=== PATIENT | female | born 1995 | race Caucasian/White ===

== ENCOUNTER → 2019-04-09 | Emergency (ER) | payer BC, OTHER ==
[~2019-04-09] VITALS: Ht 160 cm; Wt 63.5 kg
[~2019-04-09] MED LIST: ESCI10TA PO
--- OUTSIDE RECORDS SUMMARY | 2019-04-09 19:41 | XMS REPORT | Referral Summary ---
Author Author Via IRWIN Nava, [facility] Organization Via ZoeyIRWIN Flowers, [facility] Address Unknown Phone Unavailable Care Team Providers Care Director Script Name Role Phone Elio Perez PCP Encounter [facility] Date(s): 11/18/15 - 11/18/15 [facility] IRWIN Nava, [facility] [address], [place] [address]- Discharge Diagnosis: Left acute serous otitis media Discharge Diagnosis: Acute maxillary sinusitis Discharge Disposition: 01-Home or Self Care Attending Physician: Marcello Breaux MD Admitting Physician: Marcello Breaux MD Vital Signs Most recent to 1 oldest [Reference Range]: Temperature Tympanic 36.4 degC [36.6-38.1 degC] *LOW* (11/18/15 1:43 PM) Peripheral Pulse 82 bpm Rate [60-100 bpm] (11/18/15 1:43 PM) Blood Pressure 110/80 mmHg [90-140/60-90 mmHg] (11/18/15 1:43 PM) Problem List No Known Problems Allergies, Adverse Reactions, Alerts No Known Allergies Medications Bactrim DS 800 mg-160 mg oral tablet 1 tabs, Oral, BID, X 10 days, # 20 tabs, 0 Refill(s), [facility] [id number] Start Date: 11/18/15 Stop Date: 11/28/15 Status: Ordered Results No data available for this section Immunizations Vaccine Date Refusal Reason tetanus/diphth/pertuss (Tdap) adult/adol 06/18/09 diphtheria/pertussis, acel/tetanus ped 04/24/02 diphtheria/pertussis, acel/tetanus ped 05/07/98 diphtheria/pertussis, whole cell/tetanus 97 diphtheria/pertussis, whole cell/tetanus 97 diphtheria/pertussis, whole cell/tetanus 97 haemophilus b conjugate (HbOC) vaccine 05/07/98 haemophilus b conjugate (HbOC) vaccine 97 haemophilus b conjugate (HbOC) vaccine 97 haemophilus b conjugate (HbOC) vaccine 97 hepatitis A pediatric vaccine 06/19/10 hepatitis A pediatric vaccine 03/08/06 hepatitis B pediatric vaccine 97 hepatitis B pediatric vaccine 97 measles/mumps/rubella virus vaccine 04/24/02 measles/mumps/rubella virus vaccine 05/07/98 meningococcal conjugate vaccine 01/08/15 meningococcal conjugate vaccine 06/18/09 pneumococcal 23-polyvalent vaccine 02/23/99 poliovirus vaccine, inactivated 04/24/02 poliovirus vaccine, inactivated 97 poliovirus vaccine, inactivated 97 poliovirus vaccine, inactivated 97 varicella virus vaccine 06/19/10 varicella virus vaccine 07/24/98 Procedures No data available for this section Social History Social History Type Response Smoking Status Never smoker Assessment and Plan Extracted from: Title: Office Visit Note Author: Marcello Breaux MD Date: 11/18/15 Assessment/Plan 1.Acute maxillary sinusitis Bactrim DS twice daily for 10 days. May use [id number] decongestantsof choice. Call for worsening or failure to improve. Ordered: Office Visit Level 3 Est 24833 Return to Clinic 2.Left acute serous otitis media Bactrim DS twice daily for 10 days. Call for worsening or failure to improve. Orders: sulfamethoxazole-trimethoprim, 1 tabs, Oral, BID, X 10 days, # 20 tabs, 0 Refill(s), Pharmacy: [facility] [id number] Referrals to Other Providers Referred by: Marcello Breaux MD
--- OUTSIDE RECORDS SUMMARY | 2019-04-09 19:41 | XMS REPORT | Referral Summary ---
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 [address], [place] [address] Discharge Diagnosis: ADHD (attention deficit hyperactivity disorder) Discharge Disposition: 01-Home or Self Care Attending Physician: Elio Perez MD Admitting Physician: Elio Perez MD Vital Signs Most recent to 1 oldest [Reference Range]: Peripheral Pulse 70 bpm Rate [60-100 bpm] (12/03/16 1:40 PM) Blood Pressure 140/100 mmHg [90-140/60-90 mmHg] (12/03/16 1:40 PM) SpO2 98 % (12/03/16 1:40 PM) Problem List No Known Problems Allergies, Adverse Reactions, Alerts No Known Allergies Medications Vyvanse 20 mg oral capsule 20 mg 1 caps, Oral, qAM, # 30 caps, 0 Refill(s) Start Date: 12/03/16 Status: Ordered Results No data available for this section Immunizations Given and Recorded Vaccine Date Status Refusal Reason tetanus/diphth/pertuss (Tdap) adult/adol 06/18/09 Recorded diphtheria/pertussis, acel/tetanus ped 04/24/02 Given diphtheria/pertussis, acel/tetanus ped 05/07/98 Given diphtheria/pertussis, whole cell/tetanus 97 Recorded diphtheria/pertussis, whole cell/tetanus 97 Recorded diphtheria/pertussis, whole cell/tetanus 97 Recorded haemophilus b conjugate (HbOC) vaccine 05/07/98 Given haemophilus b conjugate (HbOC) vaccine 97 Given haemophilus b conjugate (HbOC) vaccine 97 Given haemophilus b conjugate (HbOC) vaccine 97 Given hepatitis A pediatric vaccine 06/19/10 Given hepatitis A pediatric vaccine 03/08/06 Given hepatitis B pediatric vaccine 97 Given hepatitis B pediatric vaccine 97 Given measles/mumps/rubella virus vaccine 04/24/02 Given measles/mumps/rubella virus vaccine 05/07/98 Given meningococcal conjugate vaccine 01/08/15 Given meningococcal conjugate vaccine 06/18/09 Given pneumococcal 23-polyvalent vaccine 02/23/99 Recorded poliovirus vaccine, inactivated 04/24/02 Given poliovirus vaccine, inactivated 97 Given poliovirus vaccine, inactivated 97 Given poliovirus vaccine, inactivated 97 Given varicella virus vaccine 06/19/10 Given varicella virus vaccine 07/24/98 Given Procedures No data available for this section Social History Social History Type Response Smoking Status Never smoker Assessment and Plan Extracted from: Title: ADHD concerns Author: Elio Perez MD Date: 12/03/16 Assessment/Plan 1.ADHD (attention deficit hyperactivity disorder) Signs and symptoms of ADHD as well as potential treatment options. Wrists and benefits of treatment reviewed. Stimulant versus non-stimulant medications discussed. Slightly concerned his blood pressure is borderlineand she is mildly tachycardic. Does admit to being a little bit anxious and worried today and suspect that this is the issue. Mother has a blood pressure cuff at home and I would like her to check her blood pressurecouple times a week at rest. 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 Also point side to try Vyvanse 20 mg 1 each morning. After 5 days can increase to 40 mg of tolerating well without adequate effect. She will call before prescription runs out so that we can provide a refill. I want to see her back when she has bone on terminal dose for at least a month for recheck on blood pressure, pulse, weight. Follow up sooner as needed Referrals to Other Providers Referred by: Elio Perez MD
--- OUTSIDE RECORDS SUMMARY | 2019-04-09 19:42 | XMS REPORT | Referral Summary ---
Author Organization Unknown Address Unknown Phone Unavailable Care Team Providers Care Sample Stitcher Name Role Phone Elio Perez PCP Encounter [facility] [id number] Date(s): 01/08/15 - 01/08/15 [facility] [address], [place] [address] Discharge Diagnosis: Encounter for immunization Discharge Disposition: Home or Self Care Attending Physician: Colten Greene Admitting Physician: Colten Greene Vital Signs No data available for this section Problem List No data available for this section Allergies, Adverse Reactions, Alerts No data available for this section Medications No data available for this section Results No data available for this section Immunizations Vaccine Date Refusal Reason diphtheria/pertussis, acel/tetanus ped 04/24/02 diphtheria/pertussis, acel/tetanus ped 05/07/98 haemophilus b conjugate (HbOC) vaccine 05/07/98 haemophilus b conjugate (HbOC) vaccine 97 haemophilus b conjugate (HbOC) vaccine 97 haemophilus b conjugate (HbOC) vaccine 97 hepatitis A pediatric vaccine 06/19/10 hepatitis A pediatric vaccine 03/08/06 hepatitis B pediatric vaccine 97 hepatitis B pediatric vaccine 97 measles/mumps/rubella virus vaccine 04/24/02 measles/mumps/rubella virus vaccine 05/07/98 meningococcal conjugate vaccine 01/08/15 meningococcal conjugate vaccine 06/18/09 poliovirus vaccine, inactivated 04/24/02 poliovirus vaccine, inactivated 97 poliovirus vaccine, inactivated 97 poliovirus vaccine, inactivated 97 varicella virus vaccine 06/19/10 varicella virus vaccine 07/24/98 Procedures No data available for this section Social History No data available for this section Assessment and Plan No data available for this section
--- OUTSIDE RECORDS SUMMARY | 2019-04-09 19:42 | XMS REPORT | Referral Summary ---
Author Author [facility] Organization Via ZoeyIRWIN Flowers, [facility] Address Unknown Phone Unavailable Care Team Providers Care Assembly Mechanic Name Role Phone Elio Perez PCP Encounter [facility] [id number] Date(s): 05/06/15 - 05/06/15 [facility] [address], [place] [address] Discharge Diagnosis: Infected insect bite Discharge Disposition: -Home or Self Care Attending Physician: Alix Gallegos Admitting Physician: Alix Gallegos Vital Signs Most recent to 1 oldest [Reference Range]: Temperature Oral 36.9 degC [35.8-37.3 degC] (05/06/15 3:03 PM) Peripheral Pulse 73 bpm Rate [60-100 bpm] (05/06/15 3:03 PM) Blood Pressure 108/62 mmHg [90-140/60-90 mmHg] (05/06/15 3:03 PM) Problem List No data available for this section Allergies, Adverse Reactions, Alerts No Known Allergies Medications triamcinolone 0.5% topical cream 1 kai, Topical, TID, # 15 g, 0 Refill(s), Pharmacy: [facility] Start Date: 05/06/15 Status: Ordered Results No data available for [...] available for this section Assessment and Plan Extracted from: Title: Office Visit Note Author: Alix Gallegos Date: 05/06/15 Assessment/Plan 1.Infected insect bite cefadroxil 500 bid #14 triamcinolone cr 0.5% tid prn claritin am and benadryl hs prn RTC if no better Ordered: Office Visit Level 3 Est 77382 Orders: cefadroxil, 500 mg 1 caps, Oral, BID, X 7 days, # 14 caps, 0 Refill(s), Pharmacy: [facility], 1 caps Oral BID,x7 days triamcinolone topical, 1 kai, Topical, TID, # 15 g, 0 Refill(s), Pharmacy: [facility]
--- OUTSIDE RECORDS SUMMARY | 2019-04-09 19:42 | XMS REPORT | Referral Summary ---
Author Author [facility] IRWIN Nava, [facility] Organization Via ZoeyIRWIN Flowers, [facility] Address Unknown Phone Unavailable Care Team Providers Care Cinema Operator Name Role Phone Elio Perez PCP Encounter [facility] Date(s): 08/16/17 - 08/16/17 Via IRWIN Nava, [facility] [address], [place] [address] Discharge Diagnosis: Atopic eczema Discharge Disposition: 01-Home or Self Care Attending Physician: Elio Perez MD Admitting Physician: Elio Perez MD Vital Signs Most recent to 1 oldest [Reference Range]: Peripheral Pulse 70 bpm Rate [60-100 bpm] (08/16/17 8:02 AM) Blood Pressure 122/80 mmHg [90-140/60-90 mmHg] (08/16/17 8:02 AM) SpO2 98 % (08/16/17 8:02 AM) Problem List No Known Problems Allergies, Adverse Reactions, Alerts No Known Allergies Medications Eucrisa 2% topical ointment 1 kai, Topical, BID, apply to dry skin bid prn. wash hands thoroughly after appl ication, # 60 g, 0 Refill(s), samples given to patient (Rx) Start Date: 08/16/17 Status: Ordered Results No data available for this section Immunizations Given and Recorded Vaccine Date Status Refusal Reason meningococcal conjugate vaccine 01/08/15 Given meningococcal conjugate vaccine 06/18/09 Given hepatitis A pediatric vaccine 06/19/10 Given hepatitis A pediatric vaccine 03/08/06 Given varicella virus vaccine 06/19/10 Given varicella virus vaccine 07/24/98 Given tetanus/diphth/pertuss (Tdap) adult/adol 06/18/09 Recorded diphtheria/pertussis, acel/tetanus ped 04/24/02 Given diphtheria/pertussis, acel/tetanus ped 05/07/98 Given measles/mumps/rubella virus vaccine 04/24/02 Given measles/mumps/rubella virus vaccine 05/07/98 Given poliovirus vaccine, inactivated 04/24/02 Given poliovirus vaccine, inactivated 97 Given poliovirus vaccine, inactivated 97 Given poliovirus vaccine, inactivated 97 Given pneumococcal 23-polyvalent vaccine 02/23/99 Recorded haemophilus b conjugate (HbOC) vaccine 05/07/98 Given haemophilus b conjugate (HbOC) vaccine 97 Given haemophilus b conjugate (HbOC) vaccine 97 Given haemophilus b conjugate (HbOC) vaccine 97 Given hepatitis B pediatric vaccine 97 Given hepatitis B pediatric vaccine 97 Given diphtheria/pertussis, whole cell/tetanus 97 Recorded diphtheria/pertussis, whole cell/tetanus 97 Recorded diphtheria/pertussis, whole cell/tetanus 97 Recorded Procedures No data available for this section Social History Social History Type Response Smoking Status Never smoker entered on: 11/18/15 Assessment and Plan Extracted from: Title: eczema Author: Elio Perez MD Date: 08/16/17 Impression and Plan Diagnosis Atopic eczema ([id number] L20.9, Discharge, Medical). Plan: Consistent with atopic dermatitis. Given facial involvement, recommend Eucrissa ointment, apply twice daily. Samples provided and if these are beneficial she will will call for prescription. Discontinue current facial wash as it is probably contributing. Eczema instructions reviewed at length. She will call if issues are not improving. Orders Orders (Selected) Outpatient Orders Ordered Office Visit Level 3 Est 34348: Return to Clinic: Prescriptions Prescribed Eucrisa 2% topical ointment: 1 kia, Topical, BID, apply to dry skin bid prn. wash hands thoroughly after application, 60 g, 0 Refill(s). Referrals to Other Providers Referred by: Elio Perez MD
--- NOTE | 2019-04-09 20:07 | ED General ---
General Stated Complaint: TROUBLE BREATHING Source of Information: Patient Exam Limitations: No Limitations History of Present Illness Date Seen by Provider: April 09, 2019 Time Seen by Provider: 20:04 Initial Comments To ER with reports of difficulty breathing. This particular episode began last night around 11 PM. She states that she is unable to go to sleep because she feels like she might stop breathing. Occasionally she feels lightheaded. She does feel anxious most of the time. Until about a year ago she didn't have much trouble with anxiety that it's becoming a more common problem for her with these episodes of shortness of breath starting about 2-3 months ago. She states this was initially began after a night of drinking and she just attributed it to a hangover. She denies cough fevers or chills. Timing/Duration: Getting Worse, Intermittent Severity: Moderate Associated Systoms: Other (dyspnea) Allergies and Home Medications Allergies Coded Allergies: No Known Drug Allergies (Unverified , 04/09/19) Patient Home Medication List Home Medication List Reviewed: Yes Review of Systems Review of Systems Constitutional: see HPI, other (anxious) EENTM: see HPI Respiratory: see HPI, short of breath Genitourinary: no symptoms reported Musculoskeletal: no symptoms reported Skin: no symptoms reported Psychiatric/Neurological: See HPI, Anxiety Hematologic/Lymphatic: No Symptoms Reported Past [id number] Hx Patient Social History Recent Foreign Travel: No Contact w/Someone Who Travel: No Physical Exam Vital Signs Capillary Refill : Height, Weight, BMI Height: '" Weight: lbs. oz. kg; BMI Method: General Appearance: No Apparent Distress, WD/WN, Anxious Eyes: Bilateral Eye Normal Inspection, Bilateral Eye PERRL, Bilateral Eye EOMI HEENT: PERRL/EOMI, TMs Normal, Normal ENT Inspection, Pharynx Normal Neck: Full Range of Motion, Normal Inspection Respiratory: Lungs Clear, Normal Breath Sounds, No Accessory Muscle Use, No Respiratory Distress Cardiovascular: Regular Rate, Rhythm, Normal Peripheral Pulses Gastrointestinal: Normal Bowel Sounds, Non Tender, Soft Extremity: Normal Capillary Refill, Normal Inspection Neurologic/Psychiatric: Alert, Oriented x3 Skin: Normal Color, Warm/Dry Progress/Results/Core Measures Suspected Sepsis SIRS Temperature: Pulse: Respiratory Rate: Laboratory Tests 04/09/19 20:05: White Blood Count 7.1 Blood Pressure / Mean: Laboratory Tests 04/09/19 20:05: Creatinine 0.82, Platelet Count 276, Total Bilirubin 1.1H Results/Orders Lab Results Laboratory Tests Test 04/09/19 20:05 04/09/19 20:21 Range/Units White Blood Count 7.1 4.3-11.0 10^3/uL Red Blood Count 5.37 4.35-5.85 10^6/uL Hemoglobin 16.5 H 11.5-16.0 G/DL Hematocrit 47 35-52 % Mean Corpuscular Volume 87 80-99 FL Mean Corpuscular Hemoglobin 31 25-34 PG Mean Corpuscular Hemoglobin Concent 36 32-36 G/DL Red Cell Distribution Width 12.8 10.0-14.5 % Platelet Count 276 130-400 10^3/uL Mean Platelet Volume 9.9 7.4-10.4 FL Neutrophils (%) (Auto) 73 42-75 % Lymphocytes (%) (Auto) 19 12-44 % Monocytes (%) (Auto) 8 0-12 % Eosinophils (%) (Auto) 0 0-10 % Basophils (%) (Auto) 0 0-10 % Neutrophils # (Auto) 5.1 1.8-7.8 X 10^3 Lymphocytes # (Auto) 1.3 1.0-4.0 X 10^3 Monocytes # (Auto) 0.6 0.0-1.0 X 10^3 Eosinophils # (Auto) 0.0 0.0-0.3 10^3/uL Basophils # (Auto) 0.0 0.0-0.1 10^3/uL D-Dimer < 0.27 0.00-0.49 UG/ML Sodium Level 141 135-145 MMOL/L Potassium Level 3.7 3.6-5.0 MMOL/L Chloride Level 102 98-107 MMOL/L Carbon Dioxide Level 25 21-32 MMOL/L Anion Gap 14 5-14 MMOL/L Blood Urea Nitrogen 11 7-18 MG/DL Creatinine 0.82 0.60-1.30 MG/DL Estimat Glomerular Filtration Rate > 60 BUN/Creatinine Ratio 13 Glucose Level 97 70-105 MG/DL Calcium Level 10.8 H 8.5-10.1 MG/DL Corrected Calcium 8.5-10.1 MG/DL Total Bilirubin 1.1 H 0.1-1.0 MG/DL Aspartate Amino Transf (AST/SGOT) 26 5-34 U/L Alanine Aminotransferase (ALT/SGPT) 16 0-55 U/L Alkaline Phosphatase 79 40-136 U/L Total Protein 7.7 6.4-8.2 GM/DL Albumin 5.0 H 3.2-4.5 GM/DL Thyroid Stimulating Hormone (TSH) 0.85 0.35-4.94 UIU/ML Serum Test, Qualitative NEGATIVE NEGATIVE Urine Color YELLOW Urine Clarity CLEAR Urine pH 6 5-9 Urine Specific [place] 1.025 H 1.016-1.022 Urine Protein 2+ H NEGATIVE Urine Glucose (UA) NEGATIVE NEGATIVE Urine Ketones 3+ H NEGATIVE Urine Nitrite NEGATIVE NEGATIVE Urine Bilirubin NEGATIVE NEGATIVE Urine Urobilinogen NORMAL NORMAL MG/DL Urine Leukocyte Esterase 1+ H NEGATIVE Urine RBC (Auto) NEGATIVE NEGATIVE Urine RBC NONE /HPF Urine WBC NONE /HPF Urine Squamous Epithelial Cells >50 H /HPF Urine Crystals NONE /LPF Urine Bacteria TRACE /HPF Urine Casts NONE /LPF Urine Mucus LARGE H /LPF Urine Culture Indicated NO Urine Opiates Screen NEGATIVE NEGATIVE Urine Oxycodone Screen NEGATIVE NEGATIVE Urine Methadone Screen NEGATIVE NEGATIVE Urine Propoxyphene Screen NEGATIVE NEGATIVE Urine Barbiturates Screen NEGATIVE NEGATIVE Ur Tricyclic Antidepressants Screen NEGATIVE NEGATIVE Urine Phencyclidine Screen NEGATIVE NEGATIVE Urine Amphetamines Screen NEGATIVE NEGATIVE Urine Methamphetamines Screen NEGATIVE NEGATIVE Urine Benzodiazepines Screen NEGATIVE NEGATIVE Urine Cocaine Screen POSITIVE H NEGATIVE Urine Cannabinoids Screen NEGATIVE NEGATIVE My Orders Orders - SHONDA COWAN APRN Thyroid Stimulating Hormone (04/09/19 20:02) Free T4 (Free Thyroxine) (04/09/19 20:02) Cbc With Automated Diff (04/09/19 20:02) Comprehensive Metabolic Panel (04/09/19 20:02) Fibrin Degradation Products (04/09/19 20:02) Ekg Tracing (04/09/19 20:02) Continuous Ekg Monitoring (04/09/19 20:02) Chest 1 View, Ap/Pa Only (04/09/19 20:02) Ed Iv/Invasive Line Start (04/09/19 20:02) Alprazolam Tablet (Xanax Tablet) (04/09/19 20:15) Hcg,Qualitative Serum (04/09/19 20:08) Ua Culture If Indicated (04/09/19 20:08) Drug Screen Stat (Urine) (04/09/19 20:08) Vital Signs/I&O Capillary Refill : Departure Communication (Admissions) 2110-Discussed cocaine in the urine with her to which she replied "yeah". Discusse dthat this could worsen the anxiety. She took one dose of a friends lexapro the other night without success. Discussed that that takes a few weeks to notice improvement. After the xanax she is feeling much better. Impression Primary Impression: Anxiety Additional Impression: Dyspnea Qualified Codes: R06.00 - Dyspnea, unspecified Disposition: HOME, SELF-CARE Condition: Stable Departure-Patient Inst. Decision time for Depature: 21:13 Referrals: NO,LOCAL PHYSICIAN (PCP/Family) Primary Care Physician Patient Instructions: Shortness of Breath (Dyspnea), Anxiety, Adult (DC) Add. Discharge Instructions: 1. [facility] up with [facility]. Call tomorrow to make an appointment to be seen for follow up. Take the lexapro (escitalopram) daily as directed, it will take about 3-4 weeks to notice improvement. Scripts Escitalopram Oxalate (Lexapro) 10 Mg Tablet 10 MG PO DAILY, #30 TAB 1 Refill Prov: SHONDA COWAN APRN 04/09/19 SHONDA COWAN APRN April 09, 2019 20:07
[2019-04-09] MEDS: ALPRAZolam 0.5 MG (XANAX) TAB PO SCH (20:14)
[2019-04-09 20:16] LABS: BASOPHILS % (AUTO) 0 % (0-10); EOSINOPHILS % (AUTO) 0 % (0-10); HEMATOCRIT 47 % (35-52); HEMOGLOBIN 16.5 G/DL (11.5-16.0); LYMPHOCYTES # (AUTO) 1.3 X 10^3 (1.0-4.0); LYMPHOCYTES % (AUTO) 19 % (12-44); MEAN CORPUSCULAR HEMOGLOBIN 31 PG (25-34); MEAN CORPUSCULAR HGB CONC 36 G/DL (32-36); MEAN CORPUSCULAR VOLUME 87 FL (80-99); MEAN PLATELET VOLUME 9.9 FL (7.4-10.4); MONOCYTES # (AUTO) 0.6 X 10^3 (0.0-1.0); MONOCYTES % (AUTO) 8 % (0-12); NEUTROPHILS # (AUTO) 5.1 X 10^3 (1.8-7.8); NEUTROPHILS % (AUTO) 73 % (42-75); PLATELET COUNT 276 10^3/uL (130-400); RED CELL DISTRIBUTION WIDTH 12.8 % (10.0-14.5); WHITE BLOOD COUNT 7.1 10^3/uL (4.3-11.0)
[2019-04-09 20:32] LABS: ALANINE AMINOTRANSFERASE 16 U/L (0-55); ALKALINE PHOSPHATASE 79 U/L (40-136); BILIRUBIN,TOTAL 1.1 MG/DL (0.1-1.0); BUN/CREATININE RATIO 13; CALCIUM 10.8 MG/DL (8.5-10.1); CARBON DIOXIDE 25 MMOL/L (21-32); CHLORIDE 102 MMOL/L (98-107); CREATININE SERUM 0.82 MG/DL (0.60-1.30); GFR ESTIMATED > 60; GLUCOSE 97 MG/DL (70-105); POTASSIUM 3.7 MMOL/L (3.6-5.0); SODIUM 141 MMOL/L (135-145); TOTAL PROTEIN 7.7 GM/DL (6.4-8.2)
[2019-04-09 20:32] LABS: BILIRUBIN,URINE NEGATIVE (NEGATIVE); CLARITY,URINE CLEAR; COLOR,URINE YELLOW; GLUCOSE, URINE (UA) NEGATIVE (NEGATIVE); KETONES,URINE 3+ (NEGATIVE); LEUKOCYTE ESTERASE ,URINE 1+ (NEGATIVE); NITRITE,URINE NEGATIVE (NEGATIVE); PH,URINE 6 (5-9); PROTEIN,URINE 2+ (NEGATIVE); UROBILINOGEN,URINE NORMAL (NORMAL)
[2019-04-09 20:47] LABS: BACTERIA,URINE TRACE /HPF; SQUAMOUS EPITHELIAL CELL,UR >50 /HPF
[2019-04-09 21:02] LABS: AMPHETAMINE SCREEN, URINE NEGATIVE (NEGATIVE); BARBITURATE SCREEN URINE NEGATIVE (NEGATIVE); BENZODIAZEPINES SCREEN URINE NEGATIVE (NEGATIVE); CANNABINOID SCREEN, URINE NEGATIVE (NEGATIVE); COCAINE SCREEN URINE POSITIVE (NEGATIVE); METHADONE STAT NEGATIVE (NEGATIVE); METHAMPHETAMINE SCREEN URINE S NEGATIVE (NEGATIVE); OPIATE SCREEN URINE NEGATIVE (NEGATIVE); OXYCODONE STAT NEGATIVE (NEGATIVE); PROPOXYPHENE STAT NEGATIVE (NEGATIVE); TRICYCLIC ANTIDEPRESSANTS SCRE NEGATIVE (NEGATIVE)
--- NOTE | 2019-04-09 21:09 | Diagnostic Imaging Report ---
Clinical indication: Patient with shortness of air. Exam: Portable chest x-ray upright view. Comparisons: None. Findings: Lungs/pleura: Lungs are clear. There is no pneumothorax. There is no pleural effusion. Mediastinum: Unremarkable. Pulmonary vasculature: Unremarkable. Heart: Unremarkable. Bones/extrathoracic soft tissue: Nipple rings are noted. Bones show no significant abnormality. Impression: There is no radiographic evidence of acute cardiopulmonary process. Dictated by: Dictated on workstation # [id number]
[2019-04-09 21:19] LABS: FREE T4 (FREE THYROXINE) 1.03 NG/DL (0.70-1.48)
[2019-04-09 21:35] VITALS: BP 135/104
[2019-04-10] MEDS: ALPRAZolam 0.5 MG (XANAX) TAB PO SCH (00:12)
== END | disposition home or self-care (01) ==
LOC: ER 19:38
DX: F41.9 Anxiety disorder, unspecified (principal); R06.00 Dyspnea, unspecified
CPT/HCPCS: 36415; 71045; 80053; 80306; 81000; 84439; 84443; 84703; 85025; 85379; 93005